=== PATIENT | female | born 1960 | race Caucasian/White ===

== ENCOUNTER 2025-02-11 19:58 | Inpatient (IN) ==
[2025-02-11] MEDS: NITROGLYCERIN 2% OINTMENT 30GM TUBE EXT ONE (20:15)
[2025-02-11] MEDS: SODIUM CHLORIDE 0.9% 500 ML IV SCH (20:15)
[2025-02-11] MEDS: ACETAMINOPHEN 1,000 MG/100 ML VIAL IV STA (20:15)
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
[2025-02-11 20:17] LABS: Hematocrit (blood only) 36.9 % (37.0-47.0); Hemoglobin 12.7 g/dl (12.0-16.0); Immature Granulocytes # (auto) 0.06 K/uL (0.01-0.20); Immature Granulocytes % (auto) 0.7 %; Mean Corpuscular Hemoglobin 31.0 pg (25.0-34.0); Mean Corpuscular Volume 90.0 fL (80.0-100.0); Platelet Count 416 K/uL (130-400); RDW Standard Deviation 44.2 fL (36.4-46.3); Red Blood Count 4.10 M/uL (4.20-5.40); White Blood Count 8.68 K/ul (4.8-10.8)
[2025-02-11 20:35] LABS: Alanine Aminotransferase 9 U/L (7-52); Albumin Globulin Ratio 1.1 (0.9-2); Alkaline Phosphatase 84 U/L (34-104); Anion Gap 10 (3-11); Bilirubin,Total 0.3 mg/dl (0.2-1.0); Blood Urea Nitrogen 21 mg/dl (6-23); Calcium 9.0 mg/dl (8.6-10.3); Carbon Dioxide 23 mmol/L (21-32); Chloride 104 mmol/L (98-107); Creatinine Clr Calc Pharmacy 47.8 ml/min; Globulin 3.2 gm/dl (2.5-4.0); Glucose 124 mg/dl (70-99(Fasting)); Lipase 42 U/L (11-82); Potassium 4.3 mmol/L (3.5-5.1); Sodium 137 mmol/L (136-145); Total Protein 6.8 gm/dl (6.0-8.3)
[2025-02-11 20:42] LABS: INR 1.0 (0.9-1.1); Prothrombin Time 10.7 Seconds (9.0-12.0)
--- NOTE | 2025-02-11 21:16 | CT Scan Report ---
Exam(s): CTA CHEST W/WO Contrast IV Amt: 112 ML OPTIRAY 320 EXAM: CT Angiography Chest Without and With Intravenous Contrast CLINICAL HISTORY: Reason for exam: chest pain. TECHNIQUE: Axial computed tomographic angiography images of the chest without and with intravenous contrast. CTDI is 18.8 mGy and DLP is 903.38 mGy-cm. Automated exposure control was utilized for the study. A dose lowering technique was utilized adhering to the principles of ALARA. MIP reconstructed images were created and reviewed. CONTRAST: Patient received 112 ML OPTIRAY 320 of IV contrast COMPARISON: 05/17/2021 FINDINGS: Pulmonary arteries: The pulmonary arterial tree is well opacified with contrast. No pulmonary emboli are identified. Aorta: The thoracic aorta is mildly calcified but nondilated. There is no aneurysm or dissection. Lungs: There are several 3 cm focal consolidations in the right lower lobe costophrenic angle and left lingula suspicious for pneumonia, less likely atelectasis. Small amounts of bronchial plugging in the right lower lobe. Mild emphysematous changes in the lung apices bilaterally. Pleural space: Unremarkable. No significant effusion. No pneumothorax. Heart: The heart is mildly enlarged. There is moderate coronary calcification involving the LAD. No pericardial effusion. No evidence of RV dysfunction. Bones/joints: Mild degenerative changes throughout the spine. No acute fracture or subluxation. Soft tissues: Unremarkable. Lymph nodes: Unremarkable. No enlarged lymph nodes. IMPRESSION: 1. There are several 3 cm focal consolidations in the right lower lobe costophrenic angle and left lingula suspicious for pneumonia, less likely atelectasis. 2. The pulmonary arterial tree is well opacified with contrast. No pulmonary emboli are identified. 3. The thoracic aorta is mildly calcified but nondilated. There is no aneurysm or dissection. 4. The heart is mildly enlarged. There is moderate coronary calcification involving the LAD. No pericardial effusion. Electronically signed by: Gen Flores MD 02/11/25 21:16 PM
--- NOTE | 2025-02-11 21:33 | CT Scan Report ---
Exam(s): CTA NECK With Contrast IV Amt: 112 ML OPTIRAY 320 EXAM: CT Angiography Neck With Intravenous Contrast CLINICAL HISTORY: Reason for exam: chest/neck pain. TECHNIQUE: Routine carotid CT angiography protocol was performed with intravenous contrast. NASCET criteria using the distal ICAs for comparison were used for evaluation of stenoses. CTDI is 37.78 mGy and DLP is 624.41 mGy-cm. Automated exposure control was utilized for the study. A dose lowering technique was utilized adhering to the principles of ALARA. MIP reconstructed images were created and reviewed. CONTRAST: Patient received 112 ML OPTIRAY 320 of IV contrast COMPARISON: None. FINDINGS: VASCULATURE: Right common carotid artery: Trace calcified plaque in the distal right common carotid artery without measurable stenosis. No dissection. Right internal carotid artery: Unremarkable. Extracranial segment is patent with no occlusion or significant stenosis. No dissection. Right external carotid artery: Unremarkable. No occlusion. Right vertebral artery: Unremarkable. No occlusion or significant stenosis. No dissection. Left common carotid artery: Small amounts of calcified plaque in the distal left common carotid artery with less than 20% stenosis. No dissection. Left internal carotid artery: Unremarkable. Extracranial segment is patent with no occlusion or significant stenosis. No dissection. Left external carotid artery: Unremarkable. No occlusion. Left vertebral artery: Unremarkable. No occlusion or significant stenosis. No dissection. Aorta: The aortic arch is mildly calcified but nondilated. There is no aneurysm or dissection. NECK: Bones/joints: Mild multilevel degenerative changes in the mid to lower cervical spine. No acute fracture or subluxation. Soft tissues: Unremarkable. Lung apices: Clear. CAROTID STENOSIS REFERENCE USING NASCET CRITERIA: % ICA stenosis = (1 - narrowest ICA diameter/diameter of distal cervical ICA) x 100. Mild - <50% stenosis. Moderate - 50-69% stenosis. Severe - 70-94% stenosis. Near occlusion - 95-99% stenosis. Occluded - 100% stenosis. IMPRESSION: No significant stenosis of the carotid bifurcation or internal carotid arteries bilaterally. Both vertebral arteries are widely patent with right-sided dominance. Electronically signed by: Gen Flores MD 02/11/25 21:32 PM
--- NOTE | 2025-02-11 21:35 | CT Scan Report ---
Exam(s): CT HEAD Without Contrast EXAM: CT Head Without Intravenous Contrast CLINICAL HISTORY: Reason for exam: chest/neck pain. TECHNIQUE: Axial computed tomography images of the head/brain without intravenous contrast. CTDI is 37.78 mGy and DLP is 624.41 mGy-cm. Automated exposure control was utilized for the study. A dose lowering technique was utilized adhering to the principles of ALARA. COMPARISON: No relevant prior studies available. FINDINGS: Brain: Unremarkable. No hemorrhage. No significant white matter disease. No edema. Ventricles: Unremarkable. No ventriculomegaly. Bones/joints: Unremarkable. No acute fracture. Soft tissues: Unremarkable. Sinuses: Chronic appearing mucosal thickening involving the left maxillary sinus. The remaining sinuses appear within normal limits. Mastoid air cells: Unremarkable as visualized. No mastoid effusion. IMPRESSION: Unremarkable appearance of the brain. No intracranial hemorrhage or infarct is identified. Electronically signed by: Gen Flores MD 02/11/25 21:34 PM
--- NOTE | 2025-02-11 21:35 | XRay Report ---
Exam(s): XR CXR 1 VIEW EXAM: XR Chest, 1 View CLINICAL HISTORY: Reason for exam: Chest pain, nonspecific. TECHNIQUE: Frontal view of the chest. COMPARISON: 05/17/2021 FINDINGS: Lungs: Small amount of soft tissue artifact over the lungs. No acute infiltrate or consolidation is seen. Pleural space: Unremarkable. No pneumothorax. Heart: Unremarkable. No cardiomegaly. Mediastinum: Unremarkable. Normal mediastinal contour. Bones/joints: Mild osteophytosis in the lower thoracic spine. No acute fracture. Vasculature: The aortic arch is mildly calcified. Upper abdomen: Unremarkable as visualized. No pneumoperitoneum under the diaphragm. IMPRESSION: Small amount of soft tissue artifact over the lungs. No acute infiltrate or consolidation is seen. Electronically signed by: Gen Flores MD 02/11/25 21:35 PM
[2025-02-11] MEDS: HEPARIN 25000 UNIT/500 ML D5W 25,000 UNITS/500 ML BAG IV SCH (21:56)
[2025-02-11] MEDS: ATORVASTATIN 40 MG TAB PO STA (21:58)
[2025-02-11 22:04] LABS: Appearance Urine Clear (Clear); Bacteria Urine Automated None Seen (None Seen); Cast Urine Automated 0-2 /lpf (0-2); Epithelial Cell Urine Auto 0-2 /hpf (0-2); Glucose Urine UA Negative (Negative); RBC Urine Automated 0-2 /hpf (0-2)
[2025-02-11 22:43] LABS: Cholesterol 266 mg/dl (0-200); HDL Cholesterol 38 mg/dl; Triglycerides 421 mg/dl (0-150)
[2025-02-11 22:58] LABS: Thyroid Stimulating Hormone 3.304 uIu/ml (0.300-4.500)
[2025-02-11] MEDS: HEPARIN SOD (PORCINE) 1000 UNIT/ML IV ONE ×2 (23:06→23:56)
--- NOTE | 2025-02-11 23:15 | History & Physical Report ---
Date of Service February 11, 2025 Assessment & Plan (1) NSTEMI (non-ST elevated myocardial infarction): Plan: -patient with stable angina, worse with exertion, elevated troponins, bedside US concerning for akinesis -patient with significant risk factors for CAD -PE was also on differential given tachycardia but CTA PE without evidence of clot burden Plan: -heparin drip -cardiology consult, appreciate recs (order placed) -aspirin/statin given, ordered for AM -check A1c, lipids, TSH for risk stratification -NPO at midnight, likely cath in AM -morphine for pain, nitro for chest pain (2) Emphysema/COPD: Plan: -continue home inhalers -not in acute exaccerbation (3) CAD (coronary artery disease): Plan: -see above -continue coreg, losartan, aspirin (4) HTN (hypertension): Plan: -see above (5) HLD (hyperlipidemia): Plan: -see above (6) Tobacco use: Plan: -see above (7) DENISSE (acute kidney injury): Plan: -possible DENISSE, creatinine 0.2 above old reading -trend daily (8) Lung nodule seen on imaging study: Plan: -concern for possible CAP on imaging but no worsening cough, no fever, no leukocytosis Plan: -f/u outpatient -hold abx for now -monitor, start abx if febrile or leukocytosis noted -IS ordered Plan I spent a total of 80 minutes in direct patient care, including [id number] time with the patient and/or family, reviewing medical records, ordering and reviewing diagnostic tests, and coordinating care with other healthcare providers. This time includes: history taking, physical examination, medical decision making, counseling, ECG interpretation, imaging interpretation, lab interpretation, orders, and education, excluding time spent in the performance of separately billed services. Admission and Anticipated Discharge Date Admission Date: February 11, 2025 History of Present Illness Chief Complaint: -chest pain Primary Care Provider: Cherise Guerra 64 yo female with pmhx of CAD (s/p difficult cath experience in past due to sedation issues), COPD, chronic pain syndrome (recently titrated off all opioids), HTN, HLD, alelrgic rhinitis, GERD who presents for chest pain. No admissions at this institution, gets care at other hospitals in region. 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 Patient seen and examined at bedside. 2 daughters present and assisted with history. Patient was with family when there was significant stress in household with family drama. During this, patient was watching dog when chest pain began. She has been having chest pain on and off for the past month. Exercise makes pain worse, pain substernal radiating to left of chest. Has had attempt at cath in past but was unable to be complete per patient due to butrans patch and concern for sedation. Some SOB present with chest pain as well. Has been on prednisone recently but that did not help chest pain. Stopped smoking recently, no alcohol use, no drug use, extensive convo regarding code status, full code at this time. Allergies Allergy/AdvReac Type Severity Reaction Status Date / Time lisinopril Allergy Severe COUGH Verified 05/17/21 18:40 olmesartan Allergy Severe LOW BP Verified 05/17/21 18:40 cefaclor Allergy Unknown uti Verified 05/17/21 18:40 Penicillins Allergy Unknown ANAPHYLAXIS Verified 05/17/21 18:40 Home Medications Medication Instructions Recorded Confirmed Type albuterol sulfate 90 mcg/actuation 2 inh inhalation DAILY PRN 05/17/21 02/11/25 History aerosol inhaler Shortness Of Breath aspirin 81 mg tablet,delayed 81 mg PO DAILY 05/17/21 02/11/25 History release (Akanksha Low Dose Aspirin) atorvastatin 40 mg tablet 40 mg PO HS 05/17/21 02/11/25 History carvedilol 12.5 mg tablet 12.5 mg PO BID 05/17/21 02/11/25 History losartan 100 mg tablet 100 mg PO DAILY 05/17/21 02/11/25 History montelukast 10 mg tablet 10 mg PO DAILY 05/17/21 02/11/25 History omeprazole 20 mg capsule,delayed 20 mg PO BID 05/17/21 02/11/25 History release potassium chloride 20 mEq 20 meq PO BID 05/17/21 02/11/25 History tablet,extended release tizanidine 4 mg tablet 4 mg PO HS 05/17/21 02/11/25 History bumetanide 1 mg tablet 1 mg PO DAILY 02/11/25 02/11/25 History celecoxib 100 mg capsule 100 mg PO BID 02/11/25 02/11/25 History cholecalciferol (vitamin D3) 125 125 mcg PO DAILY 02/11/25 02/11/25 History mcg (5,000 unit) tablet (Vitamin D3) Past Med/Surg History Problem List (Updated 02/11/25 @ 23:29 by Aroldo Traylor MD) Lung nodule seen on imaging study DENISSE (acute kidney injury) Tobacco use HLD (hyperlipidemia) HTN (hypertension) NSTEMI (non-ST elevated myocardial infarction) CAD (coronary artery disease) Emphysema/COPD Social History Smoking Status: Former smoker Preferred Language: Tunisian Feels Safe at Home: Yes Review of Systems Review of Systems: -negative unless listed above Physical Exam Physical Exam: Gen: A&O 3 NAD HEENT: NCAT, EOMI, not icteric. External ears normal. No rhinorrhea. Moist mucous membranes. Neck: Supple, full range of motion, no observable masses, No meningeal sign. Lungs: No Respiratory distress. CV: tachycardic, regular rhythm Abdomen: Soft, nondistended, No rebound tenderness. MSK: No joint swelling, no redness. Skin: No rashes, petechiae, lesions. Normal color per patient. Neuro: Normal Gait, Grossly intact. Psych: slightly confused s/p morphine Results & Data Results & Data Vital Signs (Past 12 Hours) Vital Signs Temp Pulse Resp BP Pulse Ox O2 Del Method 02/11/25 20:37 93 H 16 122/77 97 Room Air 02/11/25 20:06 36.9 C 92 H 16 132/107 H 97 Room Air 02/11/25 20:02 100 H 02/11/25 19:57 99 H 23 135/88 97 Laboratory Results -personally reviewed, creatinine appears to be above baseline but unclear due to lack of records, no leukocytosis, Hgb at baseline Medications Administered Sodium Chloride (Nss) 500 mls @ 125 mls/hr IV .Q4H MALIA Stop: 02/12/25 00:14 Last Admin: 02/11/25 20:15 Dose: 125 mls/hr Documented By: Heparin Sodium/Dextrose (Heparin 72838 Unit/500 Ml D5w) 25,000 units in 500 mls @ 19 mls/hr IV .Q24H MALIA; Protocol Stop: 03/13/25 21:44 Last Admin: 02/11/25 21:56 Dose: 950 units/hr, 19 mls/hr Documented By: GAYLE Co-signed By: Code Status & VTE Plan Code Status -full code
[2025-02-11] MEDS ORDERED: POLYETHYLENE (MIRALAX) 17 GM PACK PO PRN (23:20)
[2025-02-11] MEDS ORDERED: NITROGLYCERIN SL 0.4 MG/TAB TAB SL PRN (23:31)
[2025-02-11] MEDS: MoRPHine SULFATE 2 MG/ML CARP IV PRN (23:56)
[2025-02-11] MEDS: Heparin IV Adult Wt-Based Low-Dose w/ INITIAL Bolus Protocol IV STA (23:56)
--- NOTE | 2025-02-12 01:22 | Pre Anesthesia Assessment ---
Date of Service February 12, 2025 Pre Sedation Assessment Vital Signs Temp Pulse Pulse Resp BP BP Pulse Ox 02/11/25 23:29 97.7 F 86 105/73 95 02/11/25 20:37 93 H 16 122/77 97 02/11/25 20:06 98.4 F 92 H 16 132/107 H 97 02/11/25 20:02 100 H 02/11/25 19:57 99 H 23 135/88 97 O2 Del Method O2 Flow Rate 02/11/25 23:29 Nasal Cannula 2 02/11/25 20:37 Room Air 02/11/25 20:06 Room Air 02/11/25 20:02 02/11/25 19:57 Cardiovascular + regular rate Respiratory + respiratory effort normal Pre-Sedation Airway Assessment Smoking Status: Former smoker Hx Sleep Apnea: Yes Hx Difficult Intubation: No Short, Thick Neck: Yes Thyromental Distance: < 3.5 Finger Breadths Oral Cavity: + Dental Abnormalities Mallampati Class: III ASA: ASA4 Procedure Planning Contraindications for Sedation: none Current Medications Reviewed: Yes Notes The planned sedation has been discussed with the patient. Informed Consent was obtained. I have identified the patient, determined the appropriateness of sedation and have assessed the patient immediately prior to the procedure. All medicine(s) and interventions are by my order.
--- NOTE | 2025-02-12 01:29 | Cardiology Consultation ---
Date of Consultation February 12, 2025 Assessment & Plan (1) NSTEMI (non-ST elevated myocardial infarction): Presentation concerning for high risk ACS. Bedside echo also potentially consistent with stress-induced cardiomyopathy. With ongoing pain recommend proceeding with emergent cardiac catheterization and possible PCI. No apparent contraindications to procedure. Discussed risks, benefits, alternatives of procedure with patient and they are willing to proceed. Further recommendations pending findings of coronary angiography. History of Present Illness Attending Physician: Aroldo Traylor MD History of Present Illness 64-year-old woman here with acute chest pain and ECG concerning for acute MN. Patient seen emergently after heart alert activated after admission to the floor. Past cardiac history remarkable for premature CAD. States initial MN at age 36 and underwent cardiac catheterization at [place] which per patient report did not require intervention. Since that time has had at least 2 additional cardiac catheterizations most recently several years ago at [place] and has followed with [place] cardiology since that time. Cardiac risk factors include hypertension, borderline type 2 diabetes, dyslipidemia, Class II obesity. Other medical issues include COPD, GERD, chronic pain. Reports stuttering chest pain, worse with exertion over the last few weeks. Yesterday evening developed persistent, more severe pain after stressful situation with her daughters at home. On arrival no significant ST abnormalities on EKG, HS TropI mildly elevated in the 100s with minimal residual pain. Chest CTA negative for PE. Was noted to have heavily calcified coronary arteries including her LAD. Underwent bedside echo with Dr. Pichardo which showed EF 20-25% and apical akinesis. Later in the evening had recurrent chest pain and repeat ECG showed more pronounced ST elevation in 1 and aVL and heart alert activated. Allergies Allergy/AdvReac Type Severity Reaction Status Date / Time lisinopril Allergy Severe COUGH Verified 05/17/21 18:40 olmesartan Allergy Severe LOW BP Verified 05/17/21 18:40 cefaclor Allergy Unknown uti Verified 05/17/21 18:40 Penicillins Allergy Unknown ANAPHYLAXIS Verified 05/17/21 18:40 Home Medications Medication Instructions Recorded Confirmed Type albuterol sulfate 90 mcg/actuation 2 inh inhalation DAILY PRN 05/17/21 02/11/25 History aerosol inhaler Shortness Of Breath aspirin 81 mg tablet,delayed 81 mg PO DAILY 05/17/21 02/11/25 History release (Akanksha Low Dose Aspirin) atorvastatin 40 mg tablet 40 mg PO HS 05/17/21 02/11/25 History carvedilol 12.5 mg tablet 12.5 mg PO BID 05/17/21 02/11/25 History losartan 100 mg tablet 100 mg PO DAILY 05/17/21 02/11/25 History montelukast 10 mg tablet 10 mg PO DAILY 05/17/21 02/11/25 History omeprazole 20 mg capsule,delayed 20 mg PO BID 05/17/21 02/11/25 History release potassium chloride 20 mEq 20 meq PO BID 05/17/21 02/11/25 History tablet,extended release tizanidine 4 mg tablet 4 mg PO HS 05/17/21 02/11/25 History bumetanide 1 mg tablet 1 mg PO DAILY 02/11/25 02/11/25 History celecoxib 100 mg capsule 100 mg PO BID 02/11/25 02/11/25 History cholecalciferol (vitamin D3) 125 125 mcg PO DAILY 02/11/25 02/11/25 History mcg (5,000 unit) tablet (Vitamin D3) Patient History Social History Smoking Status: Former smoker Tobacco Type: Cigarettes Smoking End Date: 2 months ago; Second Hand Exposure: Yes; Hx Alcohol Use: No Hx Substance Use: No Preferred Language: Nicaraguan Communication Ability: Effective 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: No Beliefs That Will Affect Care: None Current Living Situation: Family Other Information That Helps Us Care for You: No Feels Safe at Home: Yes Safety Concerns: Feels Safe At This Time Assistive Devices: CPAP, Glasses and Walker Review of Systems Review of Systems: All systems reviewed & are unremarkable except as noted in HPI & below Physical Exam Physical Exam: General: Comfortable HEENT: Sclerae anicteric Lungs: Few crackles at bases Cardiac: Regular rate, no murmurs Vascular: 2+ radial Abdomen: Soft, nontender Extremities: Well perfused, no peripheral edema Neuro: Nonfocal Psych: Alert orient x3, normal affect and mood Results & Data Vital Signs (Past 12 Hours) Vital Signs Temp Pulse Pulse Resp BP BP Pulse Ox 02/11/25 23:29 97.7 F 86 105/73 95 02/11/25 20:37 93 H 16 122/77 97 02/11/25 20:06 98.4 F 92 H 16 132/107 H 97 02/11/25 20:02 100 H 02/11/25 19:57 99 H 23 135/88 97 O2 Del Method O2 Flow Rate 02/11/25 23:29 Nasal Cannula 2 02/11/25 20:37 Room Air 02/11/25 20:06 Room Air 02/11/25 20:02 02/11/25 19:57 PG Care Time/CCT Total # of Minutes Spent Total Time Spent with Patient: Total time spent is greater than 50% in coordination of care (as documented) at patient's floor/unit and/or counseling patient: Coding Level of Care Code 08225 INT INP/OBS CARE 2MIN Diagnoses NSTEMI (non-ST elevated myocardial infarction) I21.4
[2025-02-12] MEDS: niCARdipine 2,000 MCG/20 ML SYR ONE (01:45)
[2025-02-12] MEDS: IODIXANOL (VISIPAQUE) 320 MG/ML 100ML IV ONE (01:45)
[2025-02-12] MEDS: NITROGLYCERIN/D5W 100MCG/ML 20ML SYR ONE (01:46)
[2025-02-12] MEDS: MIDAZOLAM HCL 1 MG/ML 2ML VIAL ONE (02:00)
[2025-02-12] MEDS: HEPARIN (PORCINE) 1000 UNIT/ML 10 ML (CATH LAB USE ONLY) ONE (02:01)
[2025-02-12] MEDS: FUROSEMIDE 40 MG/4 ML VIAL IV ONE ×2 (02:01→11:58)
[2025-02-12] MEDS: TICAGRELOR 90 MG TAB ONE (02:13)
[2025-02-12] MEDS: OPTIRAY 350 ONE (02:15)
--- NOTE | 2025-02-12 02:20 | Post Anesthesia Assessment ---
Date of Service February 12, 2025 Post Sedation Assessment Vital Signs Temp Pulse Pulse Resp BP BP Pulse Ox 02/11/25 23:29 97.7 F 86 105/73 95 02/11/25 23:20 85 02/11/25 20:37 93 H 16 122/77 97 02/11/25 20:06 98.4 F 92 H 16 132/107 H 97 02/11/25 20:02 100 H 02/11/25 19:57 99 H 23 135/88 97 O2 Del Method O2 Flow Rate 02/11/25 23:29 Nasal Cannula 2 02/11/25 23:20 02/11/25 20:37 Room Air 02/11/25 20:06 Room Air 02/11/25 20:02 02/11/25 19:57 Recovery Score Activity: Moves 4 extremities Respiration: Deep Breath/Cough Circulation: +/-20% PreAnes Value Consciousness: Fully Awake Oxygen Saturation: O2 needed for >90% Discharge Sedation Level of Care: Fast Track Phase II
--- NOTE | 2025-02-12 02:39 | Cardiac Catheterization ---
[facility] Data: Abe Teacher Cardiac Status Clinical evaluation leading to the procedure CAD Presenation: Non STEMI Anginal Classification: CCS IV Diagnostic Physicians Name: James Chappell MD Closure Device Recommendations: Medical Therapy and/or Counseling and PCI without planned CABG Cardiac Cath Procedure Full Procedure Date February 12, 2025 Pre-Procedure Diagnosis Pre-Procedure Diagnosis: Acute Coronary Syndrome AUC Score AUC Score: 9 Post-Procedure Diagnosis Post-Procedure Diagnosis: Severe CAD and Elevated Intracardiac Pressures Procedure(s) Performed Procedure(s) Performed: Coronary Angiography and Left Heart Cath Patient Care Representative James Chappell MD Phd Internship(s) Showers Estimated Blood Loss Estimated Blood Loss: 20 Medication(s) Medication(s): Fentanyl, Heparin, Lidocaine 1%, Nicardipine, Nitroglycerin and Versed Medication(s): ticagrelor Summary of Findings Indication: High risk ACS, borderline lateral ST elevations, severe LV dysfunction with apical akinesis on echo Access: 6 Fr right radial artery Catheters: EBU 3.5 guide, diagnostic JR4 Findings: LM -normal caliber, no significant disease LAD -medium caliber, heavily calcified, proximal segment angulated with 90% calcified stenosis. 80% angulated mid segment stenosis. GLADYS-3 flow in distal LAD as wraps around apex. high D1 40-50% proximal stenosis. Small D2 without disease. Circumflex -medium caliber, 20 to 30% mid segment. Small left PLB without significant disease. RCA -dominant, medium caliber, calcified, 30-40% proximal to mid stenosis. Distal vessel without significant disease. Small RPDA and medium PLB without significant disease. LVEDP - 32 Brief attempt made to cross LAD stenosis. Kaylee blue wire placed into distal LAD. Transferrer 50 wire placed into D2. Unable to pass proximal stenosis with 2.5 balloon. With GLADYS-3 flow in LAD decision made to abort procedure tonight and reevaluate after diuresis. Arterial Closure: TR band Summary: 1. Severe single vessel coronary artery disease - Chronic, heavily calcified 90% proximal, 80% mid LAD 2. Elevated intracardiac filling pressure (LVEDP 32) Recommendations: Patient had GLADYS-3 flow in LAD and LAD disease appears chronic. Suspect acute p resentation secondary to stress-induced cardiomyopathy with echo findings. Recommend diuresis for acute heart failure. Given 40 of IV Lasix in Abe Teacher. Check formal echo in morning. Resume GDMT for cardiomyopathy as BP allows Can resume heparin infusion after TR band removed. Continue current DAPT At some point in hospitalization following diuresis plan on further attempt at PCI of heavily calcified LAD. PCI would likely require intravascular lithotripsy. Hemodynamics Rest Ao:: 105/68/90 Final Ao: 115/79/96 LV: 111/32 Recommendations Recommendations: Medical Therapy and/or Counseling and PCI without planned CABG Radiation Exposure (mGy) 1477 Contrast (mls) 75 Anesthesia Moderate [id number] Procedural Complication(s) None Disposition ICU I attest to the content of the Intraoperative Record and any orders documented therein. Any exceptions are noted below. [facility] Card Cath Procedure Codes Cardiac Catheterization Procedure 1: Cardiovascular Cath Procedures: 24266 Coronaries and LHC (+/-LV) Moderate Sedation Procedure 1: Sedation/Anesthesia: 35545 Mod Sedation by the same physician;Init15 Min Child Age 5 & Up Procedure 2: Sedation/Anesthesia: 53740 Mod Sedation by the same physician; Ea [id number] Minutes PG Care Time/CCT Total # of Minutes Spent Total Time Spent with Patient: Total time spent is greater than 50% in coordination of care (as documented) at patient's floor/unit and/or counseling patient:
[2025-02-12] MEDS: ONDANSETRON INJ 2 MG/ML 2 ML VIAL IV PRN (03:15)
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
[2025-02-12 04:50] LABS: Hematocrit (blood only) 38.3 % (37.0-47.0); Hemoglobin 12.7 g/dl (12.0-16.0); Mean Corpuscular Hemoglobin 30.4 pg (25.0-34.0); Mean Corpuscular Volume 91.6 fL (80.0-100.0); Platelet Count 355 K/uL (130-400); RDW Standard Deviation 45.6 fL (36.4-46.3); Red Blood Count 4.18 M/uL (4.20-5.40); White Blood Count 10.91 K/ul (4.8-10.8)
[2025-02-12] MEDS: ONDANSETRON INJ 2 MG/ML 2 ML VIAL ONE (06:19)
[2025-02-12 07:31] LABS: Hemoglobin A1C 6.3 % (4.5-5.6)
[2025-02-12] MEDS: ASPIRIN 81 MG ECTAB PO SCH (08:53)
[2025-02-12] MEDS: ATORVASTATIN 40 MG TAB PO SCH (08:53)
[2025-02-12] MEDS: TICAGRELOR 90 MG TAB PO SCH (08:54)
[2025-02-12] MEDS ORDERED: LOSARTAN POTASSIUM 50 MG TAB PO SCH (09:00)
[2025-02-12] MEDS ORDERED: LEVALBUTEROL TARTRATE 15 GM HFA.AER.AD INH PRN (09:31)
[2025-02-12] MEDS: FLUTICASONE FUROATE 200MCG 14 PUFFS/INHALER INH SCH (09:59)
[2025-02-12] MEDS: UMECLIDINIUM/VILANTEROL 62.5/25MCG 7 PUFFS/INHALER INH SCH (09:59)
[2025-02-12] MEDS: MAGNESIUM SULFATE / D5W 1 GM/100 ML BAG IV SCH (10:21)
--- NOTE | 2025-02-12 10:25 | XCELERA ---
[id number] [email or web address]\[id number]
--- NOTE | 2025-02-12 11:48 | Cardiology Progress Note ---
Date of Service February 12, 2025 Assessment & Plan (1) Takotsubo cardiomyopathy: Plan: EF 25 to 30% with apical akinesis 2. Coronary artery diseasesevere chronic LAD disease 3. Acute heart failureLVEDP initially 30. History of HFpEF (at baseline on Bumex, spironolactone) 4. COPD 5. Hypertensionat home on carvedilol, losartan Minimal residual chest pain this morning. Good diuresis overnight and minimal residual congestion on exam No apparent access site complications Severe LV dysfunction is new from last echo 05/2024 and most consistent with stress-induced cardiomyopathy. In addition she has severe chronic LAD CAD which seems to be significant progression from last cath 02/2023. Agree with additional IV diuresis today. Likely transition back to PO Bumex tomorrow (may need increased dose). Restart GDMT for cardiomyopathy as BP allows. Start with low-dose carvedilol. Eventually would add back losartan, spironolactone. With current LV dysfunction and long-term history of HFpEF recommend starting SGLT2 Continue DAPT with aspirin, ticagrelor Continue current statin, previously on Repatha as well as an outpatient With intermittent chronic chest pain feel would benefit from PCI to severe LAD. Discussed procedure with patient and her daughters. Tentatively plan on procedure tomorrow afternoon. In the interim will continue on heparin for 48 hours. From a cardiac standpoint okay with transition to telemetry today. Admission and Anticipated Discharge Date Admission Date: February 11, 2025 Subjective Stable overnight. -1300 after IV Lasix. This morning breathing comfortably on room air. Reports some wheezing Mild residual chest heaviness radiating to her back. Telemetry reviewedno events. Prior records from [facility] reviewed: Cardiac catheterization 02/26/2023: RHC: RA 13, PA 49/14 (mean 30), LVEDP 17, CI 4.3 LHC: 50% mid LAD, no other significant disease. Trial of Ranexa for possible microvascular disease. Dyazide switched to Bumex. Echo 03/04/2023: EF 55% Echo 05/2024: EF 55%, PASP 30, aortic valve sclerosis PFTs 02/2024: Mild obstructive lung disease normal lung volumes, normal DLCO Last seen by Ben with cardiology 12/2024: At that time having complaints of intermittent shortness of breath. Longstanding intermittent chest pain for which had been on Ranexa. Discussion of Imdur/amlodipine in the past. Repeat stress test was recommended. Had weight gain and abdominal fullness and spironolactone added. Review of Systems Review of Systems: All systems reviewed & are unremarkable except as noted in HPI & below Physical Exam Physical Exam: General: Comfortable HEENT: Sclerae anicteric Lungs: No crackles. Few scattered wheezes. Cardiac: Regular rate and rhythm, no murmurs. Vascular: Right radial artery access site with no ecchymosis, hematoma. Distal pulse and sensation intact. Abdomen: Soft, nontender Extremities: Well perfused, no peripheral edema Neuro: Nonfocal Psych: Alert orient x3, normal affect and mood Results & Data Vital Signs (Past 12 Hours) Vital Signs Temp Pulse Pulse Resp BP BP Pulse Ox 02/12/25 10:29 02/12/25 10:27 87 02/12/25 08:43 02/12/25 08:12 80 14 102/79 96 02/12/25 07:24 79 18 97/79 L 94 02/12/25 07:00 76 29 H 95/72 L 96 02/12/25 05:03 78 16 93 02/12/25 05:00 103/64 02/12/25 04:54 95 H 24 96 02/12/25 04:53 107/75 02/12/25 04:42 74 14 96 02/12/25 04:30 98/70 L 02/12/25 04:30 75 20 94 02/12/25 04:16 100/71 02/12/25 04:12 76 23 93 02/12/25 04:01 107/73 02/12/25 03:57 76 17 94 02/12/25 03:45 106/84 02/12/25 03:45 76 23 93 02/12/25 03:39 79 17 95 02/12/25 03:00 02/12/25 02:45 82 18 96 02/12/25 02:33 85 17 97 02/12/25 02:24 112/79 02/12/25 02:23 85 02/11/25 23:29 97.7 F 86 105/73 95 O2 Del Method O2 Flow Rate 02/12/25 10:29 Room Air 02/12/25 10:27 07/28/25 08:43 Room Air 02/12/25 08:12 02/12/25 07:24 02/12/25 07:00 02/12/25 05:03 2 02/12/25 05:00 02/12/25 04:54 2 02/12/25 04:53 02/12/25 04:42 2 02/12/25 04:30 02/12/25 04:30 2 02/12/25 04:16 02/12/25 04:12 2 02/12/25 04:01 02/12/25 03:57 2 02/12/25 03:45 02/12/25 03:45 2 02/12/25 03:39 2 02/12/25 03:00 Nasal Cannula 2 02/12/25 02:45 2 02/12/25 02:33 2 02/12/25 02:24 02/12/25 02:23 02/11/25 23:29 Nasal Cannula 2 PG Care Time/CCT Total # of Minutes Spent Total Time Spent with Patient: Total time spent is greater than 50% in coordination of care (as documented) at patient's floor/unit and/or counseling patient: Coding Level of Care Code 59450 SUB INP/OBS CARE 3/50MIN Diagnoses Takotsubo cardiomyopathy I51.81
[2025-02-12 12:47] LABS: Hematocrit (blood only) 40.5 % (37.0-47.0); Hemoglobin 13.2 g/dl (12.0-16.0); Mean Corpuscular Hemoglobin 29.8 pg (25.0-34.0); Mean Corpuscular Volume 91.4 fL (80.0-100.0); Platelet Count 384 K/uL (130-400); RDW Standard Deviation 45.9 fL (36.4-46.3); Red Blood Count 4.43 M/uL (4.20-5.40); White Blood Count 9.89 K/ul (4.8-10.8)
[2025-02-12 13:02] LABS: Anion Gap 9.0 (3-11); Blood Urea Nitrogen 17.0 mg/dl (6-23); Calcium 9.4 mg/dl (8.6-10.3); Carbon Dioxide 27.0 mmol/L (21-32); Chloride 101.0 mmol/L (98-107); Creatinine Clr Calc Pharmacy 54.9 ml/min; Glucose 140.0 mg/dl (70-99(Fasting)); Potassium 3.9 mmol/L (3.5-5.1); Sodium 137.0 mmol/L (136-145)
[2025-02-12 13:06] LABS: ANTI-Xa, UFH(UnfractionatedHep 0.22 IU/ml (0.3-0.7)
--- NOTE | 2025-02-12 14:48 | Hospitalist Progress Note ---
Date of Service February 12, 2025 Assessment & Plan (1) NSTEMI (non-ST elevated myocardial infarction): (2) Emphysema/COPD: (3) CAD (coronary artery disease): (4) HTN (hypertension): (5) HLD (hyperlipidemia): (6) Tobacco use: (7) DENISSE (acute kidney injury): (8) Lung nodule seen on imaging study: Plan Ms. Fairchild is a 64 yo female with pats medical history remarkable for CAD (s/p difficult cath experience in past due to sedation issues), COPD, chronic pain syndrome (recently titrated off all opioids), HTN, HLD, allergic rhinitis, GERD who is admitted for NSTEMI. 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 LHC early in the am of 02/12 revealed chronic LAD disease with 90% proximal LAD and 80% midLAD. Cardiology suspects acute presentation likely iso stress induced cardiomyopathy. Cardiology following to resume GDMT as allows and to consider intravascular lithotripsy. Dr Chappell revewed prior records from 2022, in which LHC revealed 50% mLAD disease. Patient follows Cardiology with [facility] and was last seen 12/2024. #NSTEMI #Acute on chronic heart failure, now with reduced EF (30%) #Ischemic cardiomyopathy with suspect stress induced component at this time #Chronic angina iso severe single vessel CAD LHC as above Troponin peaked at 2828.2 s/p IV diuersis overnight, net negative 1L Continue ASA and Brilinta Continue Heparin for 48 hours possible intervention tomorrow afternoon with PCI to LAD Start low dose Coreg at 3.25mg BID with hold parameters As pressure allows, will add losartan and spironolactone Will start Jardiance in am Plan to resume home bumex in am Downgrade to tele #CKD v DENISSE (acute kidney injury): stable at this time, at 1.4 nowdown to 1.26 CTM, urine protein/cr ordered If progressive, will order baseline renal imaging and labs #Prediabetes #Morbid obesity, metabolic syndrome A1C 6.3%, counselled on lifestyle changes #HLD continue statin, increased to 80mg previously on repatha lipid panel notably abnormal, would benefit likely from repatha once more will start zetia at this time # Emphysema/COPD: -continue home inhalers. Bretzi alternative and levalbuterol (albuterol causes palpitations) -not in acute exacerbation # Tobacco use: encourage cessation # Lung nodule seen on imaging study: - 3 cm focal consolidations in the right lower lobe costophrenic angle and left lingula suspicious for pneumonia, less likely atelectasis. Plan for op follow up Downgrade to PCU Full Code DVT heparin drip dispo likely in 2-3 days Admission and Anticipated Discharge Date Admission Date: February 11, 2025 Subjective Evaluated at bedside Reports some residual chest pain, but much improved from earlier on presentation Notes that she is always "wheezy" even with her inhalers, denies any worsening of her COPD symptoms Denies any palpitations, vision changes, or other acute concerns at time of exam Physical Exam Constitutional: WD/WN, vitals as above Respiratory: scattered wheezing, no respiratory distress no O2 requirement Cardiovascular: RRR, no murmur, no edema Musculoskeletal: no cyanosis or clubbing, extremities motor strength 5/5 Results & Data Results & Data Vital Signs (Past 12 Hours) Vital Signs Temp Pulse Pulse Resp BP BP Pulse Ox 02/12/25 11:25 36.6 C 87 22 108/77 93 02/12/25 10:29 02/12/25 10:27 87 02/12/25 08:43 02/12/25 08:12 80 14 102/79 96 02/12/25 07:24 79 18 97/79 L 94 02/12/25 07:00 76 29 H 95/72 L 96 02/12/25 05:03 78 16 93 02/12/25 05:00 103/64 02/12/25 04:54 95 H 24 96 02/12/25 04:53 107/75 02/12/25 04:42 74 14 96 02/12/25 04:30 98/70 L 02/12/25 04:30 75 20 94 02/12/25 04:16 100/71 02/12/25 04:12 76 23 93 02/12/25 04:01 107/73 02/12/25 03:57 76 17 94 02/12/25 03:45 106/84 02/12/25 03:45 76 23 93 02/12/25 03:39 79 17 95 02/12/25 03:00 O2 Del Method O2 Flow Rate 02/12/25 11:25 Room Air 07/28/25 10:29 Room Air 02/12/25 10:27 02/12/25 08:43 Room Air 02/12/25 08:12 02/12/25 07:24 02/12/25 07:00 02/12/25 05:03 2 02/12/25 05:00 02/12/25 04:54 2 02/12/25 04:53 02/12/25 04:42 2 02/12/25 04:30 02/12/25 04:30 2 02/12/25 04:16 02/12/25 04:12 2 02/12/25 04:01 02/12/25 03:57 2 02/12/25 03:45 02/12/25 03:45 2 02/12/25 03:39 2 02/12/25 03:00 Nasal Cannula 2 Laboratory Results Short CBC 02/11/25 02/12/25 02/12/25 Range/Units 20:00 04:26 12:05 WBC 8.68 10.91 H 9.89 (4.8-10.8) K/ul Hgb 12.7 12.7 13.2 (12.0-16.0) g/dl Hct 36.9 L 38.3 40.5 (37.0-47.0) % Plt Count 416 H 355 384 (130-400) K/uL BMP 02/11/25 02/12/25 20:00 12:05 Sodium 137 137 Potassium 4.3 3.9 Chloride 104 101 Carbon Dioxide 23 27 BUN 21 17 Creatinine 1.49 H 1.26 H Glucose 124 H 140 H Calcium 9.0 9.4 Liver Function 02/11/25 Range/Units 20:00 Total Bilirubin 0.3 (0.2-1.0) mg/dl AST 11 L (13-39) U/L ALT 9 (7-52) U/L Alkaline Phosphatase 84 (34-104) U/L Albumin 3.6 (3.4-5.0) gm/dl Urine 02/11/25 Range/Units 21:49 Urine Color Yellow Urine Appearance Clear (Clear) Urine pH 6.0 (4.5-7.5) Ur Specific [place] 1.026 (1.000-1.030) Urine Protein Negative (Negative) Urine Glucose (UA) Negative (Negative) Medications Administered Home Medications Medication Instructions Recorded Confirmed Last Taken albuterol sulfate 90 mcg/actuation 2 inh inhalation DAILY PRN 05/17/21 02/11/25 02/11/25 aerosol inhaler Shortness Of Breath aspirin 81 mg tablet,delayed 81 mg PO DAILY 05/17/21 02/11/25 02/11/25 release (Akanksha Low Dose Aspirin) atorvastatin 40 mg tablet 40 mg PO HS 05/17/21 02/11/25 02/10/25 carvedilol 12.5 mg tablet 12.5 mg PO BID 05/17/21 02/11/25 02/11/25 losartan 100 mg tablet 100 mg PO DAILY 05/17/21 02/11/25 Unknown montelukast 10 mg tablet 10 mg PO DAILY 05/17/21 02/11/25 02/11/25 omeprazole 20 mg capsule,delayed 20 mg PO BID 05/17/21 02/11/25 02/11/25 release potassium chloride 20 mEq 20 meq PO BID 05/17/21 02/11/25 02/11/25 tablet,extended release tizanidine 4 mg tablet 4 mg PO HS 05/17/21 02/11/25 02/10/25 bumetanide 1 mg tablet 1 mg PO DAILY 02/11/25 02/11/25 Unknown celecoxib 100 mg capsule 100 mg PO BID 02/11/25 02/11/25 02/11/25 cholecalciferol (vitamin D3) 125 125 mcg PO DAILY 02/11/25 02/11/25 02/11/25 mcg (5,000 unit) tablet (Vitamin D3) budesonide 160 mcg-glycopyr 9 2 inh inhalation BID 02/12/25 02/12/25 Unknown mcg-formot 4.8 mcg/actuation HFA inhaler (Breztri Aerosphere) levalbuterol tartrate 45 2 puff inhalation Q4H 02/12/25 02/12/25 Unknown mcg/actuation aerosol inhaler Active Medications Generic Name Dose Route Start Last Admin Trade Name Freq PRN Reason Stop Dose Admin Aspirin 81 mg 02/12/25 09:00 02/12/25 08:53 Aspirin 81 Mg Ectab PO 03/14/25 08:59 81 mg QAM MALIA Administration Atorvastatin Calcium 80 mg 02/12/25 09:00 02/12/25 08:53 Atorvastatin 40 Mg Tab PO 03/14/25 08:59 80 mg QAM MALIA Administration Fluticasone Furoate 1 puffs 02/12/25 09:45 02/12/25 09:59 Fluticasone Furoate 200mcg 14 Puffs/Inhaler INH 03/14/25 09:44 1 puffs DAILY MALIA Administration Heparin Sodium/Dextrose 25,000 units in 500 mls @ 21 mls/hr 02/11/25 21:45 02/12/25 13:30 Heparin 36220 Unit/500 Ml D5w IV 03/13/25 21:44 1,050 units/hr .[id number] MALIA 21 mls/hr Titration Protocol 1,050 UNITS/HR Morphine Sulfate 2 mg 02/11/25 23:31 02/11/25 23:56 Morphine Sulfate 2 Mg/Ml Carp IV 02/25/25 23:30 2 mg Q2HWA PRN Administration Severe Pain (Scale 7, 8, 9,10) Ondansetron HCl 4 mg 02/12/25 03:01 02/12/25 03:15 Ondansetron Inj 2 Mg/Ml 2 Ml Vial IV 03/14/25 03:00 4 mg Q6H PRN Administration Nausea And Vomiting Pantoprazole Sodium 40 mg 02/12/25 09:00 02/12/25 08:53 Pantoprazole 40 Mg Tab PO 03/14/25 08:59 40 mg QAM MALIA Administration Ticagrelor 90 mg 02/12/25 09:00 02/12/25 08:54 Ticagrelor 90 Mg Tab PO 03/14/25 08:59 90 mg BID MALIA Administration Umeclidinium/Vilanterol 1 puffs 02/12/25 09:45 02/12/25 09:59 Umeclidinium/Vilanterol 62.5/25mcg 7 Puffs/Inhaler INH 03/14/25 09:44 1 puffs DAILY MALIA Administration (3) CAD (coronary artery disease) Associated angina: unspecified whether angina present Coronary Disease- Associated Artery/Lesion type: unspecified vessel or lesion type [place] vs. transplanted heart: [place] heart Qualified Code(s): I25.10 - Atherosclerotic heart disease of [place] coronary artery without angina pectoris (4) HTN (hypertension) Hypertension type: unspecified Qualified Code(s): I10 - Essential (primary) hypertension
[2025-02-12] MEDS: ACETAMINOPHEN 325 MG TAB PO PRN (15:12)
[2025-02-12] MEDS: LORATADINE 10 MG TAB PO ONE (15:12)
[2025-02-12] MEDS ORDERED: MoRPHine SULFATE 2 MG/ML CARP IV PRN (15:20)
[2025-02-12 21:40] LABS: ANTI-Xa, UFH(UnfractionatedHep 0.23 IU/ml (0.3-0.7)
[2025-02-12 22:45] LABS: Total Protein Urine Random < 4.0 mg/dl (0-11.9)
[2025-02-13 04:30] LABS: Hematocrit (blood only) 37.6 % (37.0-47.0); Hemoglobin 12.7 g/dl (12.0-16.0); Mean Corpuscular Hemoglobin 30.6 pg (25.0-34.0); Mean Corpuscular Volume 90.6 fL (80.0-100.0); Platelet Count 343 K/uL (130-400); RDW Standard Deviation 44.8 fL (36.4-46.3); Red Blood Count 4.15 M/uL (4.20-5.40); White Blood Count 8.20 K/ul (4.8-10.8)
[2025-02-13 04:54] LABS: Anion Gap 8.0 (3-11); Blood Urea Nitrogen 22.0 mg/dl (6-23); Calcium 9.2 mg/dl (8.6-10.3); Carbon Dioxide 29.0 mmol/L (21-32); Chloride 99.0 mmol/L (98-107); Creatinine Clr Calc Pharmacy 48.0 ml/min; Glucose 140.0 mg/dl (70-99(Fasting)); Magnesium 2.2 mg/dl (1.7-2.4); Potassium 3.7 mmol/L (3.5-5.1); Sodium 136.0 mmol/L (136-145)
[2025-02-13 05:15] LABS: ANTI-Xa, UFH(UnfractionatedHep 0.28 IU/ml (0.3-0.7)
--- NOTE | 2025-02-13 05:53 | Electrocardiogram Report ---
Test Reason : Blood Pressure : */* mmHG Vent. Rate : 103 BPM Atrial Rate : 103 BPM P-R Int : 146 ms QRS Dur : 98 ms QT Int : 334 ms P-R-T Axes : -19 -15 -6 degrees QTcB Int : 437 ms Sinus tachycardia Low voltage QRS Septal infarct , age undetermined Nonspecific ST abnormality Abnormal ECG When compared with ECG of 17-May-2021 17:00, Septal infarct is now Present T wave amplitude has increased in Anterior leads Reconfirmed by Heriberto Murphy ([id number]) on 02/13/2025 5:54:36 AM Referred By: REFERRED SELF Confirmed By: Heriberto Murphy
--- NOTE | 2025-02-13 05:54 | Electrocardiogram Report ---
Test Reason : Blood Pressure : */* mmHG Vent. Rate : 81 BPM Atrial Rate : 81 BPM P-R Int : 172 ms QRS Dur : 96 ms QT Int : 378 ms P-R-T Axes : 58 -25 -6 degrees QTcB Int : 439 ms Normal sinus rhythm Low voltage QRS Septal infarct (cited on or before 11-Feb-2025) Lateral injury pattern ACUTE CA / STEMI Abnormal ECG When compared with ECG of 11-Feb-2025 19:55, T wave amplitude has decreased in Anterolateral leads ST more elevated in Lateral leads Confirmed by Heriberto Murphy ([id number]) on 02/13/2025 5:54:16 AM Referred By: REFERRED SELF Confirmed By: Heriberto Murphy
[2025-02-13] MEDS: EZETIMIBE 10 MG TAB PO SCH (08:37)
[2025-02-13] MEDS: EMPAGLIFLOZIN 25 MG TAB PO SCH (08:38)
[2025-02-13] MEDS: POTASSIUM CHLORIDE CRTAB 20 MEQ TABCR PO SCH (08:42)
[2025-02-13] MEDS: MONTELUKAST SODIUM 10 MG TABLET PO ONE (11:00)
[2025-02-13] MEDS: guaiFENesin 600 MG TABCR PO SCH (11:00)
[2025-02-13] MEDS: FLUTICASONE PROPIONATE NA SPR 16 GM BTL SCH (11:00)
[2025-02-13] MEDS: AZITHROMYCIN 250 MG TAB PO SCH (11:26)
[2025-02-13 11:58] LABS: Chlamydia pneumoniae PCR Not Detected (NotDetected); Coronavirus 229E PCR Not Detected (NotDetected); Coronavirus CoV-2 (COVID19)PCR Not Detected (NotDetected); Coronavirus HKU1 PCR Not Detected (NotDetected); Coronavirus NL63 PCR Not Detected (NotDetected); Coronavirus OC43PCR Not Detected (NotDetected); Human Metapneumovirus PCR Not Detected (NotDetected); Parainfluenza Virus 1 PCR Not Detected (NotDetected); Parainfluenza Virus 2 PCR Not Detected (NotDetected); Parainfluenza Virus 3 PCR Not Detected (NotDetected); Parainfluenza Virus 4 PCR Not Detected (NotDetected); Respiratory Syncytial VirusPCR Not Detected (NotDetected); Rhinovirus/Enterovirus PCR Not Detected (NotDetected)
[2025-02-13 11:58] LABS: ANTI-Xa, UFH(UnfractionatedHep 0.33 IU/ml (0.3-0.7)
--- NOTE | 2025-02-13 13:19 | Pre Anesthesia Assessment ---
Date of Service February 13, 2025 Pre Sedation Assessment Vital Signs Temp Pulse Pulse Pulse Resp BP BP 02/13/25 12:56 98.1 F 84 12 104/71 02/13/25 11:49 98.1 F 79 16 123/71 02/13/25 08:33 97.7 F 88 18 104/67 02/13/25 08:00 68 02/13/25 03:59 97.7 F 68 18 97/60 L 02/12/25 23:28 97.5 F L 84 17 93/72 L 02/12/25 21:48 80 02/12/25 21:00 02/12/25 19:47 97.9 F 80 18 95/70 L 02/12/25 17:14 97.9 F 86 21 101/77 02/12/25 17:13 81 Pulse Ox O2 Del Method 02/13/25 12:56 93 Room Air 02/13/25 11:49 96 Room Air 02/13/25 08:33 92 Room Air 02/13/25 08:00 02/13/25 03:59 94 Room Air 02/12/25 23:28 92 Room Air 02/12/25 21:48 02/12/25 21:00 Room Air 02/12/25 19:47 92 Room Air 02/12/25 17:14 90 Room Air 02/12/25 17:13 Cardiovascular + regular rate Respiratory + respiratory effort normal Pre-Sedation Airway Assessment Smoking Status: Former smoker Hx Sleep Apnea: Yes Hx Difficult Intubation: No Short, Thick Neck: Yes Thyromental Distance: < 3.5 Finger Breadths Oral Cavity: + Dental Abnormalities Mallampati Class: III ASA: ASA4 Procedure Planning Contraindications for Sedation: none Current Medications Reviewed: Yes Notes The planned sedation has been discussed with the patient. Informed Consent was obtained. I have identified the patient, determined the appropriateness of sedation and have assessed the patient immediately prior to the procedure. All medicine(s) and interventions are by my order.
[2025-02-13] MEDS: NITROGLYCERIN/D5W 100MCG/ML 20ML SYR ONE (13:49)
[2025-02-13] MEDS: niCARdipine 2,000 MCG/20 ML SYR ONE (13:49)
[2025-02-13] MEDS: HEPARIN (PORCINE) 1000 UNIT/ML 10 ML (CATH LAB USE ONLY) ONE (15:13)
[2025-02-13] MEDS: MIDAZOLAM HCL 1 MG/ML 2ML VIAL ONE ×3 (15:13→15:22)
[2025-02-13] MEDS: OPTIRAY 350 ONE (15:26)
--- NOTE | 2025-02-13 15:33 | Post Anesthesia Assessment ---
Date of Service February 13, 2025 Post Sedation Assessment Vital Signs Temp Pulse Pulse Pulse Resp BP BP 02/13/25 13:00 84 02/13/25 12:56 98.1 F 84 12 104/71 02/13/25 11:49 98.1 F 79 16 123/71 02/13/25 08:33 97.7 F 88 18 104/67 02/13/25 08:00 68 02/13/25 03:59 97.7 F 68 18 97/60 L 02/12/25 23:28 97.5 F L 84 17 93/72 L 02/12/25 21:48 80 02/12/25 21:00 02/12/25 19:47 97.9 F 80 18 95/70 L 02/12/25 17:14 97.9 F 86 21 101/77 02/12/25 17:13 81 Pulse Ox O2 Del Method 02/13/25 13:00 02/13/25 12:56 93 Room Air 02/13/25 11:49 96 Room Air 02/13/25 08:33 92 Room Air 02/13/25 08:00 02/13/25 03:59 94 Room Air 02/12/25 23:28 92 Room Air 02/12/25 21:48 02/12/25 21:00 Room Air 02/12/25 19:47 92 Room Air 02/12/25 17:14 90 Room Air 02/12/25 17:13 Recovery Score Activity: Moves 4 extremities Respiration: Deep Breath/Cough Circulation: +/-20% PreAnes Value Consciousness: Fully Awake Oxygen Saturation: O2 needed for >90% Discharge Sedation Level of Care: Fast Track Phase II
--- NOTE | 2025-02-13 15:53 | Cardiac Catheterization ---
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 Clinical evaluation leading to the procedure CAD Presenation: Non STEMI Diagnostic Physicians Name: James Chappell MD Closure Device Recommendations: PCI without planned CABG Cardiac Cath Procedure Full Procedure Date February 13, 2025 Pre-Procedure Diagnosis Pre-Procedure Diagnosis: CAD AUC Score AUC Score: 8 Post-Procedure Diagnosis Post-Procedure Diagnosis: Severe CAD, Successful PCI and Elevated Intracardiac Pressures Procedure(s) Performed Procedure(s) Performed: Left Heart Cath, Drug Eluting Stent and IVUS Conformal Pad Former James Chappell MD Senior It Specialist(s) Showers Estimated Blood Loss Estimated Blood Loss: 30 Medication(s) Medication(s): Fentanyl, Heparin, Lidocaine 1%, Nicardipine, Nitroglycerin and Versed Medication(s): Ticagrelor Summary of Findings Indication: Severe LAD CAD, cardiomyopathy Access: 6 Fr right radial artery Catheters: EBU 3.5 guide, pigtail Findings: LM -normal caliber, no significant disease LAD -medium caliber, heavily calcified, proximal segment angulated with 90% calcified stenosis. 80% angulated mid segment stenosis. GLADYS-3 flow in distal LAD as wraps around apex. high D1 50-60% proximal stenosis. Small D2 without disease. Circumflex -medium caliber, 20 to 30% mid segment. Small left PLB without significant disease. RCA (not visualized on current study, on prior study from 02/12)-dominant, medium caliber, calcified, 30-40% proximal to mid stenosis. Distal vessel without significant disease. Small RPDA and medium PLB without significant disease. -- PCI -- Antithrombotic therapy: Heparin, ticagrelor Procedure: Left main cannulated with EBU 3.5 guide and GuideLiner Pre-procedure flow GLADYS 3 Long whisper wire passed across lesion into distal vessel Dilation of mid back to proximal LAD with 1.5 OTW balloon Whisper wire exchanged for mailman wire. Mid back to proximal LAD further dilated with 2.0 and 2.5 balloons Mid back to proximal LAD further dilated with 3.0 shockwave intravascular lithotripsy balloon (110 pulses) Bishop IVUS catheter placed to mid LAD. Pullback revealed heavily calcified disease extending back to proximal LAD and takeoff of high first diagonal Mid LAD stented with 3.0 x 26 mm Ehsan drug-eluting stent Proximal to mid LAD stented with second 3.0 x 26 mm Lorado drug-eluting stent overlapping proximal aspect of initial stent Stents post-dilated with 3.5 noncompliant balloon Repeat IVUS showed well-expanded, well apposed stent with no apparent edge complications. IC vasodilators administered for spasm Post procedure GLADYS 3 flow, stents well expanded with minimal residual stenosis and no apparent cardiac complications. GLADYS-3 flow in D2 and D1. D1 with residual 60-70% ostial stenosis. Arterial Closure: TR band Summary: 1. Successful PCI of proximal to mid LAD with intravascular lithotripsy and 2 overlapping drug-eluting stents (3.0 x 26, 3.0 x 26 mm Lorado; postdilated with 3.5 NC). Residual 60-70% ostial stenosis in high D1. Recommendations: To PCU for continued monitoring, can discontinue heparin infusion Continue DAPT for at least 1 year. Will transition ticagrelor to clopidogrel Continue statin, and ASCVD risk factor modification Plan for medical management of residual branch vessel disease. Hemodynamics Rest Ao:: 91/58/74 Final Ao: 125/73/92 LV: 115/19 Recommendations Recommendations: PCI without planned CABG Radiation Exposure (mGy) 4223 Contrast (mls) 90 Anesthesia Moderate 5520-4499 Procedural Complication(s) None Disposition ICU I attest to the content of the Intraoperative Record and any orders documented therein. Any exceptions are noted below. [facility] Card Cath Procedure Codes Cardiac Catheterization Procedure 1: Cardiovascular Cath Procedures: 12521 Left Heart Cath (+/-LV) Therapeutic Services & Ancillary Procedure 1: Cardiovascular Tx and Anc Procedures: 02437 IV Ultrasound (Coronary or Graft) Moderate Sedation Procedure 1: Sedation/Anesthesia: 04267 Mod Sedation by the same physician;Init15 Min Child Age 5 & Up Procedure 2: Sedation/Anesthesia: 87593 Mod Sedation by the same physician; Ea [id number] Minutes Stenting Procedure 1: Cardiovascular Stent Procedures: 65807 Perc transcatheter placement of intracoronary stent(s), with ang PG Care Time/CCT Total # of Minutes Spent Total Time Spent with Patient: Total time spent is greater than 50% in coordination of care (as documented) at patient's floor/unit and/or counseling patient:
[2025-02-13] MEDS: ONDANSETRON INJ 2 MG/ML 2 ML VIAL IV STA (15:58)
--- NOTE | 2025-02-13 16:24 | Cardiology Progress Note ---
Date of Service February 13, 2025 Assessment & Plan (1) Takotsubo cardiomyopathy: Plan: EF 25 to 30% with apical akinesis 2. Coronary artery diseasesevere chronic LAD diseasepost PCI with 2 GIANFRANCO to LAD 3. Acute heart failureLVEDP initially 30. History of HFpEF (at baseline on Bumex, spironolactone) 4. COPD 5. Hypertensionat home on carvedilol, losartan Post successful PCI of LAD with 2 overlapping GIANFRANCO Good diuresis overnight, negative more than 3.5 L since admission, weight down 6 pounds Repeat LVEDP today down to 21 Can stop heparin infusion Continue DAPTwill transition ticagrelor to clopidogrel tomorrow, load with 600 mg and then 75 mg daily Continue current carvedilol, empagliflozin. Can add back losartan, spironolactone as an outpatient as BP/kidney function allows Pending renal function tomorrow plan to resume maintenance diuretic. Likely increase Bumex to 2 mg daily Continue current statin, previously on Repatha as well as an outpatient Will repeat limited echo tomorrow to reassess LV function, rule out LV thro mbus If stable overnight okay from a cardiac standpoint for discharge tomorrow with follow-up with her cardiology team at [facility] Admission and Anticipated Discharge Date Admission Date: February 11, 2025 Subjective Post PCI this afternoon. Some mild left-sided chest discomfort post procedure and some nausea that responded to Zofran. Review of Systems Review of Systems: All systems reviewed & are unremarkable except as noted in HPI & below Physical Exam Physical Exam: General: Comfortable HEENT: Sclerae anicteric Lungs: No crackles. Few scattered wheezes. Cardiac: Regular rate and rhythm, no murmurs. Vascular: TR band in place Abdomen: Soft, nontender Extremities: Well perfused, no peripheral edema Neuro: Nonfocal Psych: Alert orient x3, normal affect and mood Results & Data Vital Signs (Past 12 Hours) Vital Signs Temp Pulse Pulse Resp BP BP Pulse Ox 02/13/25 16:00 76 18 93/71 L 94 02/13/25 15:43 78 18 97/77 L 93 02/13/25 13:00 84 02/13/25 12:56 98.1 F 84 12 104/71 93 02/13/25 11:49 98.1 F 79 16 123/71 96 02/13/25 08:33 97.7 F 88 18 104/67 92 02/13/25 08:00 68 O2 Del Method 02/13/25 16:00 Room Air 02/13/25 15:43 Room Air 02/13/25 13:00 02/13/25 12:56 Room Air 02/13/25 11:49 Room Air 02/13/25 08:33 Room Air 02/13/25 08:00 PG Care Time/CCT Total # of Minutes Spent Total Time Spent with Patient: Total time spent is greater than 50% in coordination of care (as documented) at patient's floor/unit and/or counseling patient: Coding Level of Care Code 18660 SUB INP/OBS CARE 3/50MIN Diagnoses Takotsubo cardiomyopathy I51.81
--- NOTE | 2025-02-13 17:21 | Hospitalist Progress Note ---
Date of Service February 13, 2025 Assessment & Plan (1) NSTEMI (non-ST elevated myocardial infarction): (2) Emphysema/COPD: (3) CAD (coronary artery disease): (4) HTN (hypertension): (5) HLD (hyperlipidemia): (6) Tobacco use: (7) DENISSE (acute kidney injury): (8) Lung nodule seen on imaging study: Plan Ms. Fairchild is a 64 yo female with pats medical history remarkable for CAD (s/p difficult cath experience in past due to sedation issues), COPD, chronic pain syndrome (recently titrated off all opioids), HTN, HLD, allergic rhinitis, GERD who is admitted for NSTEMI. Patient was noted to have ekg changes consistent with STEMI, therefore brought to cardiac cath rn overnight. LHC early in the am of 02/12 revealed chronic LAD disease with 90% proximal LAD and 80% midLAD. Cardiology suspects acute presentation likely iso stress induced cardiomyopathy. Cardiology following to resume GDMT as allows and to consider intravascular lithotripsy. Dr Chappell revewed prior records from 2022, in which LHC revealed 50% mLAD disease. Patient follows Cardiology with [facility] and was last seen 12/2024. #NSTEMI #Acute on chronic heart failure, now with reduced EF (30%) #Ischemic cardiomyopathy with suspect stress induced component at this time #Chronic angina iso severe single vessel CAD s/p overlapping GIANFRANCO 02/13 LHC as above Troponin peaked at 2828.2 s/p IV diuersis overnight, net negative 1L Continue ASA Discontinue Brilinta, last dose this evening Start plavix 75 mg tomorrow after load today Discontinue Heparin for 48 hours possible intervention tomorrow afternoon with PCI to LAD Continue reduced dose Coreg at 3.25mg BID with hold parameters As pressure allows and renal function, will add losartan and spironolactone Started Jardiance 02/13 If stable renal function in am, start bumex 2mg daily per Cards Limited echo per cards recommendations tomorrow possible discharge with follow-up with her cardiology team at [facility] #CKD v DENISSE (acute kidney injury): stable at this time, at 1.4 -->1.26-->1.4 If progressive, will order baseline renal imaging and labs has recieved x2 loads of contrast in 48 hours #Prediabetes #Morbid obesity, metabolic syndrome A1C 6.3%, counselled on lifestyle changes #HLD continue statin, increased to 80mg previously on repatha lipid panel notably abnormal, would benefit likely from repatha once more continue newly added zetia at this time #congestion #sore throat started singulair started azithromycin 500mg x 3 days given slight increase and cough +sputum flonase added # Emphysema/COPD: -continue home inhalers. Bretzi alternative and levalbuterol (albuterol causes palpitations) -not in acute exacerbation # Tobacco use: encourage cessation # Lung nodule seen on imaging study: - 3 cm focal consolidations in the right lower lobe costophrenic angle and left lingula suspicious for pneumonia, less likely atelectasis. Plan for op follow up Downgrade to PCU Full Code DVT heparin sq dispo likely in 1-2 days Admission and Anticipated Discharge Date Admission Date: February 11, 2025 Subjective NAEO reports feeling ready for [facility] today but notes right sided nasal congestion, slight increase in baseline cough and sputum production denies fevers, sob, wheezing or other symptoms at this time reports headache, but states 2/2 nitro tab denies chest pain or palpitations Physical Exam Constitutional: WD/WN, vitals as above Respiratory: few wheezes, better than day prior cleared with cough Cardiovascular: RRR, no murmur, no edema Musculoskeletal: no cyanosis or clubbing, extremities motor strength 5/5 Results & Data Results & Data Vital Signs (Past 12 Hours) Vital Signs Temp Pulse Pulse Resp BP BP Pulse Ox 02/13/25 16:45 36.7 C 78 16 118/84 95 02/13/25 16:31 81 02/13/25 16:30 36.4 C L 79 17 109/75 93 02/13/25 16:17 36.4 C L 76 16 125/85 94 02/13/25 16:00 76 18 93/71 L 94 02/13/25 15:43 78 18 97/77 L 93 02/13/25 13:00 84 02/13/25 12:56 36.7 C 84 12 104/71 93 02/13/25 11:49 36.7 C 79 16 123/71 96 02/13/25 08:33 36.5 C 88 18 104/67 92 02/13/25 08:00 68 O2 Del Method 02/13/25 16:45 Room Air 02/13/25 16:31 02/13/25 16:30 Room Air 02/13/25 16:17 Room Air 02/13/25 16:00 Room Air 02/13/25 15:43 Room Air 02/13/25 13:00 02/13/25 12:56 Room Air 02/13/25 11:49 Room Air 02/13/25 08:33 Room Air 02/13/25 08:00 Laboratory Results Short CBC 02/13/25 Range/Units 04:07 WBC 8.20 (4.8-10.8) K/ul Hgb 12.7 (12.0-16.0) g/dl Hct 37.6 (37.0-47.0) % Plt Count 343 (130-400) K/uL BMP 02/13/25 04:07 Sodium 136 Potassium 3.7 Chloride 99 Carbon Dioxide 29 BUN 22 Creatinine 1.44 H Glucose 140 H Calcium 9.2 Medications Administered Home Medications Medication Instructions Recorded Confirmed Last Taken albuterol sulfate 90 mcg/actuation 2 inh inhalation DAILY PRN 05/17/21 02/11/25 02/11/25 aerosol inhaler Shortness Of Breath aspirin 81 mg tablet,delayed 81 mg PO DAILY 05/17/21 02/11/25 02/11/25 release (Akanksha Low Dose Aspirin) atorvastatin 40 mg tablet 40 mg PO HS 05/17/21 02/11/25 02/10/25 carvedilol 12.5 mg tablet 12.5 mg PO BID 05/17/21 02/11/25 02/11/25 losartan 100 mg tablet 100 mg PO DAILY 05/17/21 02/11/25 Unknown montelukast 10 mg tablet 10 mg PO DAILY 05/17/21 02/11/25 02/11/25 omeprazole 20 mg capsule,delayed 20 mg PO BID 05/17/21 02/11/25 02/11/25 release potassium chloride 20 mEq 20 meq PO BID 05/17/21 02/11/25 02/11/25 tablet,extended release tizanidine 4 mg tablet 4 mg PO HS 05/17/21 02/11/25 02/10/25 bumetanide 1 mg tablet 1 mg PO DAILY 02/11/25 02/11/25 Unknown celecoxib 100 mg capsule 100 mg PO BID 02/11/25 02/11/25 02/11/25 cholecalciferol (vitamin D3) 125 125 mcg PO DAILY 02/11/25 02/11/25 02/11/25 mcg (5,000 unit) tablet (Vitamin D3) budesonide 160 mcg-glycopyr 9 2 inh inhalation BID 02/12/25 02/12/25 Unknown mcg-formot 4.8 mcg/actuation HFA inhaler (Breztri Aerosphere) levalbuterol tartrate 45 2 puff inhalation Q4H 02/12/25 02/12/25 Unknown mcg/actuation aerosol inhaler Active Medications Generic Name Dose Route Start Last Admin Trade Name Freq PRN Reason Stop Dose Admin Acetaminophen 650 mg 02/11/25 23:20 02/13/25 12:23 Acetaminophen 325 Mg Tab PO 03/13/25 23:19 650 mg Q4H PRN Administration Pain or Fever Aspirin 81 mg 02/12/25 09:00 02/13/25 08:36 Aspirin 81 Mg Ectab PO 03/14/25 08:59 81 mg QAM MALIA Administration Atorvastatin Calcium 80 mg 02/12/25 09:00 02/13/25 08:38 Atorvastatin 40 Mg Tab PO 03/14/25 08:59 80 mg QAM MALIA Administration Azithromycin 500 mg 02/13/25 10:15 02/13/25 11:26 Azithromycin 250 Mg Tab PO 02/16/25 10:14 500 mg QAM MALIA Administration Carvedilol 3.125 mg 02/12/25 17:00 02/13/25 16:48 Carvedilol 3.125 Mg Tab PO 03/14/25 16:59 3.125 mg BIDM MALIA Administration Ezetimibe 10 mg 02/13/25 09:00 02/13/25 08:37 Ezetimibe 10 Mg Tab PO 03/15/25 08:59 10 mg QAM MALIA Administration Empagliflozin 25 mg 02/13/25 09:00 02/13/25 08:38 Empagliflozin 25 Mg Tab PO 03/15/25 08:59 25 mg DAILY MALIA Administration Fluticasone Furoate 1 puffs 02/12/25 09:45 02/13/25 08:35 Fluticasone Furoate 200mcg 14 Puffs/Inhaler INH 03/14/25 09:44 1 puffs DAILY MALIA Administration Fluticasone Propionate 2 sprays 02/13/25 10:15 02/13/25 11:00 Fluticasone Propionate Na Spr 16 Gm Btl NA 03/15/25 10:14 2 sprays DAILY MALIA Administration Guaifenesin 600 mg 02/13/25 10:10 02/13/25 11:00 Guaifenesin 600 Mg Tabcr PO 03/15/25 10:09 600 mg Q12 MALIA Administration Ondansetron HCl 4 mg 02/12/25 03:01 02/12/25 03:15 Ondansetron Inj 2 Mg/Ml 2 Ml Vial IV 03/14/25 03:00 4 mg Q6H PRN Administration Nausea And Vomiting Pantoprazole Sodium 40 mg 02/12/25 09:00 02/13/25 08:36 Pantoprazole 40 Mg Tab PO 03/14/25 08:59 40 mg QAM MALIA Administration Potassium Chloride 20 meq 02/13/25 09:00 02/13/25 08:42 Potassium Chloride Crtab 20 Meq Tabcr PO 03/15/25 08:59 20 meq QAM MALIA Administration Ticagrelor 90 mg 02/12/25 09:00 02/13/25 08:39 Ticagrelor 90 Mg Tab PO 02/13/25 23:55 90 mg BID MALIA Administration Tizanidine HCl 4 mg 02/12/25 00:39 02/12/25 22:35 Tizanidine Hcl 4 Mg Tablet PO 03/14/25 08:59 4 mg TID PRN Administration pain Umeclidinium/Vilanterol 1 puffs 02/12/25 09:45 02/13/25 08:35 Umeclidinium/Vilanterol 62.5/25mcg 7 Puffs/Inhaler INH 03/14/25 09:44 1 puffs DAILY MALIA Administration (3) CAD (coronary artery disease) Associated angina: unspecified whether angina present Coronary Disease- Associated Artery/Lesion type: unspecified vessel or lesion type [place] vs. transplanted heart: [place] heart Qualified Code(s): I25.10 - Atherosclerotic heart disease of [place] coronary artery without angina pectoris (4) HTN (hypertension) Hypertension type: unspecified Qualified Code(s): I10 - Essential (primary) hypertension
[2025-02-13] MEDS: MONTELUKAST SODIUM 10 MG TABLET PO SCH (21:04)
[2025-02-13] MEDS: HEPARIN SOD 5,000 UNIT/0.5 ML VIAL SQ SCH (21:54)
[2025-02-14 07:27] LABS: Hematocrit (blood only) 39.4 % (37.0-47.0); Hemoglobin 12.8 g/dl (12.0-16.0); Mean Corpuscular Hemoglobin 29.6 pg (25.0-34.0); Mean Corpuscular Volume 91.2 fL (80.0-100.0); Platelet Count 320 K/uL (130-400); RDW Standard Deviation 45.8 fL (36.4-46.3); Red Blood Count 4.32 M/uL (4.20-5.40); White Blood Count 7.58 K/ul (4.8-10.8)
[2025-02-14 07:54] LABS: Anion Gap 7.0 (3-11); Blood Urea Nitrogen 22.0 mg/dl (6-23); Calcium 9.1 mg/dl (8.6-10.3); Carbon Dioxide 29.0 mmol/L (21-32); Chloride 102.0 mmol/L (98-107); Creatinine Clr Calc Pharmacy 49.1 ml/min; Glucose 97.0 mg/dl (70-99(Fasting)); Magnesium 2.2 mg/dl (1.7-2.4); Potassium 4.0 mmol/L (3.5-5.1); Sodium 138.0 mmol/L (136-145)
[2025-02-14] MEDS: CLOPIDOGREL BISULFATE 300 MG TAB PO ONE (08:59)
[2025-02-14 11:49] VITALS: RESP 18; TEMP 98.4; O2SAT 94
[2025-02-14 14:35] VITALS: BP 107/83; PULSE 68
--- NOTE | 2025-02-14 14:42 | Discharge Summary ---
Date of Service February 14, 2025 Admission HPI Per Admitting Provider 64 yo female with pmhx of CAD (s/p difficult cath experience in past due to sedation issues), COPD, chronic pain syndrome (recently titrated off all opioids), HTN, HLD, alelrgic rhinitis, GERD who presents for chest pain. No admissions at this institution, gets care at other hospitals in region. In the ED, noted to have elevated troponin, bedside echo with akinesis, ECG without overt ST elevations (was reviewed by passenger conductor rope coiling machine operator per ED report), given aspirin/nitro/morphine with improvement in pain, cardiology recommending cath in AM, started on heparin, admitted to medicine for further workup. Patient seen and examined at bedside. 2 daughters present and assisted with history. Patient was with family when there was significant stress in household with family drama. During this, patient was watching dog when chest pain began. She has been having chest pain on and off for the past month. Exercise makes pain worse, pain substernal radiating to left of chest. Has had attempt at cath in past but was unable to be complete per patient due to butrans patch and concern for sedation. Some SOB present with chest pain as well. Has been on prednisone recently but that did not help chest pain. Stopped smoking recently, no alcohol use, no drug use, extensive convo regarding code status, full code at this time. Admission Exam Per Admitting Provider Gen: A&O 3 NAD HEENT: NCAT, EOMI, not icteric. External ears normal. No rhinorrhea. Moist mucous membranes. Neck: Supple, full range of motion, no observable masses, No meningeal sign. Lungs: No Respiratory distress. CV: tachycardic, regular rhythm Abdomen: Soft, nondistended, No rebound tenderness. MSK: No joint swelling, no redness. Skin: No rashes, petechiae, lesions. Normal color per patient. Neuro: Normal Gait, Grossly intact. Psych: slightly confused s/p morphine Principal Diagnosis #NSTEMI #Acute on chronic heart failure, now with reduced EF (30%) #Ischemic cardiomyopathy with suspect stress induced component at this time #Chronic angina iso severe single vessel CAD s/p overlapping GIANFRANCO 02/13 Discharge Exam Constitutional: WD/WN, vitals as above, NAD, sitting up in bed, pleasant, conversing easily Respiratory: normal respiratory effort, lungs clear to auscultation, no wheeze, rales, rhonchi. Normal insp/exp effort, no accessory muscle use Cardiovascular: RRR, no murmur, no edema Vessels: no JVD or carotid bruit Chest: normal inspection of chest Abdomen: normal bowel sounds, soft, nontender, no hepatosplenomegaly Musculoskeletal: no cyanosis or clubbing, extremities motor strength 5/5 Skin: no rashes, warm and dry normal turgor Neurologic: PERRL, EOMI, accommodation nl, no face palsy, no dysarthria CN's II- XI intact bilaterally and moves all extremities Psychiatric: A+Ox3, euthymic affect Discharge Data Allergies Allergy/AdvReac Type Severity Reaction Status Date / Time lisinopril Allergy Severe COUGH Verified 05/17/21 18:40 olmesartan Allergy Severe LOW BP Verified 05/17/21 18:40 cefaclor Allergy Unknown uti Verified 05/17/21 18:40 Penicillins Allergy Unknown ANAPHYLAXIS Verified 05/17/21 18:40 Consultations 02/11/25 21:23 ED Decision to Admit Stat 02/12/25 02:28 Consult Accounting Office Manager Routine Procedures Performed Operation Date: 02/13/25 14:00 Actual Procedures p Drug Eluting Stent SGl Vessel - James Chappell MD s Cineradiography w/Routine Exam - James Chappell MD p IVUS Coronary Single Vessel - James Chappell MD p Perc Raines Coronary Lithotripsy - James Chappell MD Ordered Studies 02/11/25 20:04 CT angio chest dissec wo/w con Stat 02/11/25 20:06 CT angio neck with con Stat CT head/brain wo con Stat 02/12/25 01:01 CL Cath Imgs for PACS use only Stat 02/13/25 06:43 CL Cath Imgs for PACS use only Routine 02/13/25 15:43 CL IVUS Coronary Single Vessel Routine Hospital Course (1) NSTEMI (non-ST elevated myocardial infarction): (2) Emphysema/COPD: (3) CAD (coronary artery disease): (4) HTN (hypertension): (5) HLD (hyperlipidemia): (6) Tobacco use: (7) DENISSE (acute kidney injury): (8) Lung nodule seen on imaging study: Plan Ms. Fairchild is a 64 yo female with pats medical history remarkable for CAD (s/p difficult cath experience in past due to sedation issues), COPD, chronic pain syndrome (recently titrated off all opioids), HTN, HLD, allergic rhinitis, GERD who is admitted for NSTEMI. Patient was noted to have ekg changes consistent with STEMI overnight, therefore brought to senior laboratory technician overnight. LHC early in the am of 02/12 revealed chronic LAD disease with 90% proximal LAD and 80% midLAD. Patient underwent stent placement in LAD on 02/13 by cardiology. She was also diuresed with IV Lasix with diuresis of 3.5 L. Patient reported improvement in her symptoms. She was discharged on Plavix, increased dose of Bumex of 2mg once a day. The dose of Lipitor was increased to 80 mg once a day and Zetia was added. Losartan was discontinued as the patient's blood pressure was borderline. Coreg dose was decreased to 3.125 and Jardiance was added. Patient to follow-up with PCP and obtain renal panel before consideration is done to add losartan, spironolactone. Patient is unable to lie flat and needs frequent repositioning due to pain; she will benefit from hospital bed at home. Please note the above document was generated using voice recognition software. It may contain grammatical, syntax or spelling errors. Any formal questions or concerns about the content, text or information contained within the body of this dictation should be directly addressed to the provider for clarification Total Time Total Time Spent Total Time Spent (In Minutes): 45 Total Time Includes: Examination of the Patient, Discharge Planning, Medication Reconciliation, Communication With Other Providers and Other Discharge Plan Discharge Items Patient Disposition: Home - Self-Care Reason For Visit: Chest Pain Discharge Diagnosis: Coronary artery disease status post stent placement Condition on Discharge: Fair Activity: Resume your previous activity Non-emergency contact: Primary Care Provider Call non-emergency contact if: you have any medication questions and your symptoms worsen Follow-up/Referrals: Cherise Guerra PA-C [Primary Care Provider] - 02/23/25 2:00 pm Diet: Regular Addtl Attending Provider Instructions: You were admitted to the hospital and underwent echocardiogram which showed low heart function of 25 to 30%. You also underwent cardiac cath and had 2 stents placed in one of your heart vessels. You were evaluated by cardiology during the hospitalization and the following changes have been made to your medication regimen; Stop taking Lipitor 40 mg. The dose has been increased to 80 mg once a day. New prescription has been sent to pharmacy. Stop taking Coreg to 12.5 mg. The dose has been decreased to 3.125 mg twice a day. New prescription has been sent to pharmacy. Stop taking omeprazole as it interacts with one of the new medication. You are prescribed Protonix to be taken once a day. You are prescribed plavix 75 mg once a day. You are to take this medication for at least 1 year. Dose of Bumex has been increased to 2mg once a day. You are also prescribed Jardiance 10 mg once a day and ezetimibe 10 mg once a day. Please follow-up with your primary care doctor as scheduled. You will need repeat of your electrolytes and kidney function. Pending Studies at Discharge: No Stand-Alone Forms: My [facility], Smoking Cessation Medications and DC Order Prescriptions: New clopidogrel 75 mg Tablet 75 mg PO QAM Qty: 60 0RF carvedilol 3.125 mg Tablet 3.125 mg PO BIDM Qty: 60 0RF ezetimibe 10 mg Tablet 10 mg PO QAM Qty: 60 0RF pantoprazole 40 mg Tablet,Delayed Release (Dr/Ec) 40 mg PO QAM Qty: 30 0RF Jardiance 10 mg tablet 10 mg PO DAILY Qty: 30 0RF atorvastatin [Lipitor] 80 mg tablet 80 mg PO DAILY Qty: 60 0RF Continued tizanidine 4 mg tablet 4 mg PO HS aspirin [Akanksha Low Dose Aspirin] 81 mg Tablet,Delayed Release (Dr/Ec) 81 mg PO DAILY montelukast 10 mg Tablet 10 mg PO DAILY potassium chloride 20 mEq Tablet Extended Release 20 meq PO BID albuterol sulfate 90 mcg/actuation HFA aerosol inhaler 2 inh INHALATION DAILY PRN (Reason: Shortness Of Breath) celecoxib 100 mg capsule 100 mg PO BID cholecalciferol (vitamin D3) [Vitamin D3] 125 mcg (5,000 unit) Tablet 125 mcg PO DAILY levalbuterol tartrate 45 mcg/actuation HFA aerosol inhaler 2 puff INHALATION Q4H Breztri Aerosphere 160-9-4.8 mcg/actuation HFA aerosol inhaler 2 inh INHALATION BID Changed bumetanide 1 mg tablet 2 mg PO DAILY Qty: 60 0RF Discontinued atorvastatin 40 mg tablet 40 mg PO HS carvedilol 12.5 mg tablet 12.5 mg PO BID omeprazole 20 mg capsule,delayed release(DR/EC) 20 mg PO BID losartan 100 mg Tablet 100 mg PO DAILY Discharge Orders: Discharge Order (Routine); Ordered 02/14/25 Ordered By: Luis Armando Jimenez/Other Patient Handouts: Prediabetes, 5 Steps for Eating Healthier Admission Data Admit Date/Time: 02/11/25 21:31 Attending Provider: Luis Armando Saha Admit Provider: Aroldo Traylor Primary Care Provider: Cherise Guerra Other Providers: James Chappell; Miguel Zuleta Other Interventions: Discharge Summary Assessment (RN) Last Done: 02/14/25 14:33
--- NOTE | 2025-02-14 19:15 | XCELERA ---
[id number] [id number]
[2025-02-15] MEDS ORDERED: CLOPIDOGREL BISULFATE 75 MG TAB PO SCH (09:00)
--- NOTE | 2025-02-16 05:25 | Electrocardiogram Report ---
Test Reason : Blood Pressure : */* mmHG Vent. Rate : 82 BPM Atrial Rate : 82 BPM P-R Int : 172 ms QRS Dur : 102 ms QT Int : 396 ms P-R-T Axes : 57 -24 8 degrees QTcB Int : 462 ms Normal sinus rhythm Low voltage QRS Septal infarct (cited on or before 11-Feb-2025) Poor R wave progression, consider anterior [place] vs. lead placement vs. LVH Nonspecific T wave abnormality Abnormal ECG When compared with ECG of 12-Feb-2025 00:36, ST no longer elevated in Lateral leads Confirmed by Heriberto Murphy ([id number]) on 02/16/2025 5:24:53 AM Referred By: REFERRED SELF Confirmed By: Heriberto Murphy
--- NOTE | 2025-02-16 05:26 | Electrocardiogram Report ---
Test Reason : Blood Pressure : */* mmHG Vent. Rate : 76 BPM Atrial Rate : 76 BPM P-R Int : 158 ms QRS Dur : 98 ms QT Int : 454 ms P-R-T Axes : 26 -32 224 degrees QTcB Int : 510 ms Normal sinus rhythm Left axis deviation Low voltage QRS Septal infarct (cited on or before 11-Feb-2025) T wave abnormality, consider inferior ischemia T wave abnormality, consider anterolateral ischemia Poor R wave progression, consider anterior [place] vs. lead placement vs. LVH Prolonged QT Abnormal ECG When compared with ECG of 12-Feb-2025 02:21, T wave inversion now evident in Anterolateral leads T wave inversion now evident in Inferior leads QT has lengthened Confirmed by Heriberto Murphy ([id number]) on 02/16/2025 5:26:07 AM Referred By: REFERRED SELF Confirmed By: Heriberto Murphy
== END 2025-02-14 16:10 | disposition home or self-care (01) | DRG 323 ==
LOC: ED 19:58 → SUATTDRO 21:31 → 2S 21:31 → 1E 02-12 02:24 → 2S 02-12 10:15
DX: R91.1 Solitary pulmonary nodule; R09.81 Nasal congestion; Z68.35 Body mass index [BMI] 35.0-35.9, adult; E78.5 Hyperlipidemia, unspecified; I11.0 Hypertensive heart disease with heart failure; I21.4 Non-ST elevation (NSTEMI) myocardial infarction; Z63.9 Problem related to primary support group, unspecified; E66.812 Obesity, class 2; K21.9 Gastro-esophageal reflux disease without esophagitis; J44.9 Chronic obstructive pulmonary disease, unspecified; Z88.8 Allergy status to other drugs, medicaments and biological substances; E88.810 Metabolic syndrome; Z88.0 Allergy status to penicillin; I50.23 Acute on chronic systolic (congestive) heart failure; Z88.1 Allergy status to other antibiotic agents; Z79.82 Long term (current) use of aspirin; Z87.891 Personal history of nicotine dependence; N17.9 Acute kidney failure, unspecified; G89.4 Chronic pain syndrome; N18.9 Chronic kidney disease, unspecified; J43.9 Emphysema, unspecified; Z79.899 Other long term (current) drug therapy